=== PATIENT | male | born 1960 | race Caucasian/White ===

== ENCOUNTER 2021-12-26 13:18 | Emergency (ER) | payer OTHER ==
[2021-12-26 14:39] LABS: Actual Bicarbonate (HCO3v) 22 mEq/L (22-28); Calcium, Ionized (venous) 1.63 mmol/L (1.16-1.32); Chloride (VBG) 106 mmol/L (98-106); Potassium (VBG) 4.82 mmol/L (3.70-5.30); Puncture Site Other Site; Sodium 134.7 mmol/L (133-146); pH (venous) 7.43 (7.32-7.43)
[2021-12-26 14:42] LABS: #Eosinphils 0.1 10x3/uL (0.0-0.5); #Monocytes 0.8 10x3/uL (0.0-1.1); #Neutrophils 5.4 10x3/uL (1.5-8.4); %Basophils 0.4 % (0.0-2.0); %Eosinophils 1.4 % (0.0-6.0); %Lymphocytes 22.1 % (18.0-47.0); %Monocytes 9.6 % (0.0-10.0); %Neutrophils 66.3 % (40.0-75.0); Hemoglobin 12.3 g/dL (13.5-17.5); Mean Corpuscular HGB CONC 31.4 g/dL (32.0-36.0); Mean Corpuscular Hemoglobin 28.3 pg (27.0-33.0); Mean Corpuscular Volume 90.1 fl (81.2-95.1); Mean Platelet Volume 10.9 fl (7.4-10.4); Platelet Count 242 10x3/uL (150-450); RBC Distribution Width 13.2 % (11.5-14.5); Red Blood Cell (RBC) Count 4.35 10x6/uL (4.32-5.72); White Blood Cell (WBC) Count 8.1 10x3/uL (3.5-10.5)
[2021-12-26 14:57] LABS: ALT (SGPT) 25 U/L (8-55); AST (SGOT) 16 U/L (5-34); Albumin 3.9 g/dL (3.4-4.8); Alkaline Phosphatase 98 U/L (40-110); Anion Gap 12 mmol/L (10-20); BUN (Urea Nitrogen) 22 mg/dL (8.4-25.7); Bilirubin, Total 1.4 mg/dL (0.2-1.2); Calc. Creatinine Clearance 0 mL/min (70-130); Carbon Dioxide 26 mmol/L (23-31); Chloride 106 mmol/L (98-107); Globulin 3.6 g/dL (2.4-3.5); Glucose 224 mg/dL (80-115); Magnesium 1.2 mg/dL (1.6-2.6); Potassium 4.9 mmol/L (3.5-5.1); Protein, Total 7.5 g/dL (5.8-8.1); Sodium 139 mmol/L (136-145)
[2021-12-26] MEDS ORDERED: Magnesium 2 GM/50 ML BAG (IN WATER) ONE (15:16)
[2021-12-26 15:25] LABS: Calcium 14.7 mg/dL (7.8-10.44)
[2021-12-26 17:09] LABS: Troponin I Less than 0.010 ng/mL (< 0.028)
== END 2021-12-26 17:37 | disposition home or self-care (01) ==
LOC: CSHERS 13:18
DX: R07.89 Other chest pain (principal); E83.42 Hypomagnesemia; I10 Essential (primary) hypertension; E11.9 Type 2 diabetes mellitus without complications; E78.5 Hyperlipidemia, unspecified; Z79.82 Long term (current) use of aspirin; Z79.84 Long term (current) use of oral hypoglycemic drugs; Z79.899 Other long term (current) drug therapy
CPT/HCPCS: 36415; 71045; 80053; 82805; 83735; 83880; 84484; 85025; 87040; 93005; 96374; J3475